=== PATIENT | male | born 1955 ===

== ENCOUNTER 2019-06-05 12:15 | Inpatient (IN) | payer MEDICARE ==
--- NOTE | 2019-06-06 01:54 | Psychiatric Evaluation ---
DATE OF SERVICE: 06/05/2019 INITIAL EVALUATION AND MENTAL STATUS EXAM PATIENT'S AGE: 63. SEX: Male. PHYSICIAN: Dr. Irene. CHIEF COMPLAINT: Confusion and depression. HISTORY OF PRESENT ILLNESS: The patient is a 63-year-old homeless male, who was transferred from [facility] Room because of increased depression and because of suicidal ideations. The patient is homeless and has not been able to have any safe plan for self-care. The patient also has been having poor appetite and has been having lack of motivations. He also has not been able to provide any safe plan for self-care. PAST PSYCHIATRIC HISTORY: The patient is a poor historian, but seems to have history of depression. PAST MEDICAL HISTORY: The patient has a history of seizure disorder. SOCIAL HISTORY: The patient is homeless, poor historian, and unable to provide any information about the living situation. No known alcohol or drug use. ALLERGIES: No known allergies. MENTAL STATUS EXAMINATION: The patient seems to be older than stated age. Seems to be sedated and not answering most of the questions. Poor historian. The patient denies any hallucinations or delusions. Admits to suicidal ideations with no plans, but denies homicidal ideations. The patient is slightly sedated. He seems to be disoriented to date and time, but oriented to the situation. Impaired immediate and recent memories, but intact remote memory. Poor insight and poor judgment. ASSESSMENT: PRIMARY DIAGNOSIS: Depressive mood disorder, unspecified. MEDICAL DIAGNOSES: Seizure disorder. TREATMENT PLAN: Continue to monitor the patient's behavior and condition closely. Also, we will continue adjusting medications and followup. ESTIMATED LENGTH OF STAY: 5-7 days. PATIENT'S STRENGTHS AND WEAKNESSES: The patient's strength is not clear at this time. Weakness is his ineffective coping and poor judgment. AFTER DISCHARGE PLAN: The patient might need placement and outpatient treatment and followup. CRITERIA FOR DISCHARGE: The patient will not be depressed or suicidal and will stabilize psychotropic medications and will establish outpatient treatment plans. [facility]# [id number]
[2019-06-06] MEDS: Escitalopram Oxalate 5 mg Tab PO SCH (08:56)
[2019-06-06] MEDS ORDERED: METOPROLOL SUCCINATE 50 MG PO SCH (09:00)
--- NOTE | 2019-06-06 11:01 | Progress Notes ---
DATE: 06/06/2019 PSYCHIATRIC PROGRESS NOTE SUBJECTIVE: Chart was reviewed and the patient was interviewed. Also, discussed the patient's condition with the staff and I reviewed the records and the labs. The patient is still depressed and confused. Minimum interaction with others. The patient also still has difficulty expressing himself and his needs. He denies any intention to harm himself, but is still feeling hopeless. ASSESSMENT: The patient is still severely depressed. TREATMENT PLAN: We will continue monitoring his behavior closely. Also, we will add Lexapro in a dose of 5 mg at bedtime and continue to work on his ineffective coping. JOB# [id number]
[2019-06-06] MEDS ORDERED: CLO PO PRN (16:00)
[2019-06-07] MEDS: Escitalopram Oxalate 5 mg Tab PO SCH (08:38)
--- NOTE | 2019-06-08 10:13 | History & Physical ---
ADMIT DATE: 06/05/2019 REASON FOR ADMISSION: Psychiatric disorder. HISTORY OF PRESENT ILLNESS: This is a 63-year-old male with underlying history of hypertension, diabetes, mental disorder, admitted to Geropsych Unit for underlying psychiatric illness by Dr. Irene. Dr. Irene requested a medical H and P on this patient. Denies any medical concerns. PAST MEDICAL HISTORY: Hypertension, diabetes. PAST SURGICAL HISTORY: No significant past surgery. FAMILY HISTORY: Denies any family history. SOCIAL HISTORY: Lives at home. No tobacco, alcohol. Denies any drug use. CURRENT MEDICATIONS: Per medication reconciliation. ALLERGIES: No known drug allergies. REVIEW OF SYSTEMS: Denies any fever, no chills, no nausea or vomiting, no abdominal pain, no chest pain or trouble breathing. No hematemesis, no melena. PHYSICAL EXAMINATION: VITAL SIGNS: Temperature 97.8, pulse 60, respirations 20, blood pressure 144/79, O2 98% on room air. HEENT: Unremarkable. HEART: S1, S2 normal. LUNGS: Clear to auscultation. ABDOMEN: Soft, nontender. ____. NEUROLOGIC: ____. ASSESSMENT: 1. Diabetes. 2. Hypertension. 3. Mental disorder. ____. PLAN: Continue current diabetic and blood pressure medications. Smoking cessation advised. Psych management per psychiatrist. The patient is medically stable to participate in activities of Geropsych unit. JOB# [id number]
--- NOTE | 2019-06-08 10:13 | Progress Notes ---
DATE: 06/07/2019 SUBJECTIVE: Chart was reviewed and the patient interviewed. Also discussed the patient's condition with the staff and reviewed records and labs. The patient is still withdrawn and quiet. The patient also is still anxious and he is still repeating issues over and over and still has disorganized thoughts. The patient also is __ and at times mumbles to himself. He is still severely depressed. Otherwise, the patient started on Lexapro with no side effects. ASSESSMENT: The patient is still depressed and needs close monitoring. TREATMENT PLAN: We will continue to monitor his behavior and his condition closely. Also, continue to work on his ineffective coping. Also, the patient will need placement and will continue to work on placement issue. [facility]# [id number]
--- NOTE | 2019-06-08 10:13 | Progress Notes ---
DATE: 06/08/2019 PSYCHIATRIC PROGRESS NOTE SUBJECTIVE: Chart reviewed and the patient interviewed. Also discussed the patient's condition with the staff and reviewed records and labs. The patient is still in a depressed mood. The patient also is still isolative and is withdrawn. He is interacting minimally with peers and with others. The patient denies any intention to harm himself or others. He also is still slightly paranoid, but no major behavioral problems. ASSESSMENT: The patient is still depressed and still considered to be gravely disabled and needs placement. TREATMENT PLAN: Continue to monitor behavior and condition closely. Also, we will increase Lexapro to 10 mg every day. Also, continue to work on his ineffective coping and his depression. JOB# [id number]
--- NOTE | 2019-06-09 08:16 | Progress Notes ---
DATE: 06/09/2019 Chart reviewed and the patient interviewed. Also discussed the patient's condition with the staff and reviewed records and labs. The patient is still depressed and withdrawn. The patient also seems to be forgetful at times. He also has not been interacting much with peers or with others. Also, he is still unable to provide any safe plan for self-care, but at the same time is cooperative in regard to placement and he is not opposing to that. Blood workup showed hemoglobin A1c of 9.7 and triglycerides of 498. Apparently, the patient was not taking his medications for diabetes or hyperlipidemia. Dr. Alexander was notified. At the same time, we will continue monitoring his labs and we will continue to follow up. JOB# [id number]
--- NOTE | 2019-06-10 18:12 | Psych Progress Note ---
Psych Progress Note - Intro Date of Progress Note: 06/10/19 - Assessment Assessment: The patient was interviewed, the case was discussed with staff, the chart and records were reviewed. Per the staff the patient has been withdrawn in bed all day depressed and not socializing with others isolating. The patient was visited bedside and appears to be with a depressed affect. He is poorly cooperative with the interview. He is irritable and not interested in talking with this provider. Attempted to engage the patient but interview to be terminated due to to his poor cooperation. Upon chart review the patient is admitted for depression with suicidal thoughts however the patient is unwilling to discuss this today. - Vitals, I&O Vitals: Vital Signs - 24 hr 06/09/19 06/10/19 06/10/19 19:54 06:04 08:00 Temp 98 F 97.4 F HR 73 70 RR 20 19 18 BP 141/76 158/80 O2 Sat % 97 97 06/10/19 06/10/19 09:22 09:23 Temp HR 70 70 RR BP 158/80 158/80 O2 Sat % - Plan Plan: Continue current treatment plan and monitor for behaviors. - Review of Relevant Data Review of Relevant Data: I have reviewed the following items and time louisa (where applicable) has been applied. - Medications Current Medications: Current Medications Amlodipine Besylate (Norvasc) 10 mg PO DAILY [facility] Stop: 08/05/19 08:59 Last Admin: 06/10/19 09:23 Dose: 10 mg Escitalopram Oxalate (Lexapro) 10 mg PO DAILY [facility]; Protocol Stop: 08/07/19 08:59 Last Admin: 06/10/19 09:23 Dose: 10 mg Lorazepam (Ativan) 0.5 mg PO Q4HR PRN; Protocol PRN Reason: Anxiety Stop: 07/05/19 20:20 Metformin HCl (Glucophage) 1,000 mg PO BIDWM [facility] Stop: 08/08/19 07:59 Last Admin: 06/10/19 17:29 Dose: 1,000 mg Metoprolol Succinate (Toprol Xl) 50 mg PO DAILY [facility] Stop: 08/05/19 08:59 Last Admin: 06/10/19 09:22 Dose: 50 mg Ondansetron HCl (Zofran Odt) 4 mg PO Q8H PRN PRN Reason: Nausea / Vomiting Stop: 08/04/19 20:37 Zolpidem Tartrate (Ambien) 5 mg PO HS PRN PRN Reason: Insomnia Stop: 08/04/19 20:20
--- NOTE | 2019-06-11 07:45 | Progress Notes ---
DATE: 06/11/2019 SUBJECTIVE: The patient in the hospital, depressed, mostly withdrawn, not interacting much with peers, refusing to speak with me this morning, difficult to fully assess. Medications were reviewed. The patient is currently in the hospital, increased depression and suicidal ideations. Ongoing safety concerns given the extent and severity of his current mood state, social withdrawal. Medications were reviewed. JOB# [id number]
[2019-06-12 16:07] VITALS: BP 163/80
--- NOTE | 2019-06-13 09:05 | Progress Notes ---
DATE: SUBJECTIVE: Chart was reviewed and the patient interviewed. Also discussed the patient's condition with the staff and reviewed records and labs. The patient is still anxious and is still in a depressed mood. The patient also is still in irritable mood and is still agitated. The patient also is still feeling hopeless and wants to be left alone. Otherwise, the patient is interacting minimally with others. ASSESSMENT: The patient is still depressed and anxious. TREATMENT PLAN: We will continue monitoring behavior and his condition closely. Also, continue adjusting psychotropic medications and work on behavioral modification. JOB# [id number]
--- NOTE | 2019-06-13 16:58 | Progress Notes ---
DATE: 06/13/2019 SUBJECTIVE: Chart was reviewed and the patient interviewed. Also discussed the patient's condition with the staff and reviewed records and labs. The patient is still depressed mood and is still anxious. The patient is also interacting minimally with others. The patient also is still feeling hopeless and helpless and seems to be slightly confused. Otherwise, the patient continued to comply with taking Lexapro 10 mg every day with no side effects. The patient also is complaining of generalized weakness and seems that from being in the streets and being homeless for a while. He has started to have some medical issues at this time. ASSESSMENT: The patient is still depressed and slightly confused. TREATMENT PLAN: Continue Lexapro 10 mg every day. Also, Camila Abarca interviewed the patient for possible placement there for more physical rehabilitation. At the same time, we will continue to work on his ineffective coping and his medical issues and continue to follow up. JOB# [id number]
--- NOTE | 2019-06-14 07:36 | Progress Notes ---
DATE: 06/14/2019 SUBJECTIVE: Chart was reviewed and the patient interviewed. Also discussed the patient's condition with the staff and reviewed records and labs. The patient is still in a depressed mood and is still isolative and withdrawn. The patient also is still guarded and interacting minimally with others. The patient also is still slightly suspicious and paranoid. Also, complaining of lack of energy and lack of motivations and the patient is also feeling "no energy." He is complaining of generalized weakness. The patient's gait is steady and vital signs are stable and fair appetite. ASSESSMENT: The patient is still depressed and is still high risk of suicide. TREATMENT PLAN: Continue to monitor his behavior and his condition closely. Also, we will increase Lexapro to 10 mg every day and we will continue to follow up closely. [facility]# [id number]
--- NOTE | 2019-06-14 22:59 | Progress Notes ---
DATE: 06/14/2019 PSYCHIATRIC PROGRESS NOTE SUBJECTIVE: Chart reviewed and the patient interviewed. Also discussed the patient's condition with the staff and reviewed records and labs. The patient is still anxious and still in a depressed mood. The patient also still isolates himself and stays in his room most of the time. The patient also is still unable to provide any safe plan for self-care. He is still feeling hopeless and feeling weak with lack of energy and lack of motivations. Otherwise, the patient is compliant with taking medications with no side effects of medications. Also, the patient denies any thoughts of suicide. ASSESSMENT: The patient is still depressed, but not suicidal. TREATMENT PLAN: We will continue monitoring behavior and condition closely. Also, we will increase Lexapro to 10 mg at bedtime and we will continue to follow up. Also, working on placement issue and discharge plans when stable. JOB# [id number]
--- NOTE | 2019-06-15 08:52 | Progress Notes ---
DATE: 06/15/2019 SUBJECTIVE: Chart was reviewed and the patient interviewed. Also discussed the patient's condition with the staff and reviewed records and labs. The patient is still anxious and is still in a depressed mood. The patient also is withdrawn and guarded and interacting minimally with others. The patient also is interacting minimally and wants to be left alone. Seems to be feeling hopeless and helpless. Otherwise, no side effects of medications. ASSESSMENT: The patient is still anxious and is still in irritable mood. TREATMENT PLAN: We will continue to monitor behavior and condition closely. Also, we will continue Lexapro in a dose of 10 mg every day and continue to adjust the dose. Also, we will work on irritability and anger and we will continue to follow up. JOB# [id number]
--- NOTE | 2019-06-17 02:05 | Progress Notes ---
DATE: 06/16/2019 SUBJECTIVE: Chart was reviewed and the patient interviewed. Also discussed the patient's condition with the staff and reviewed records and labs. The patient is still in a depressed mood and is still isolative and withdrawn. The patient also is still guarded and is interacting minimally with others. The patient also is still showing unsteady gait and generalized weakness at times. Otherwise, the patient is compliant with taking Lexapro with no side effects. ASSESSMENT: The patient is still depressed and also still needs close monitoring. TREATMENT PLAN: Continue monitoring behavior and condition closely. Also, continue adjusting psychotropic medications and work on behavioral modification. JOB# [id number]
--- NOTE | 2019-06-17 19:47 | Progress Notes ---
DATE: 06/17/2019 IDENTIFYING DATA: A 63-year-old male brought in here from [facility] for increased depression and suicidal ideations. Nursing staff reported the patient has been isolating in his room, disengaged. Today on [id number] evaluation, the patient is eating his food. The patient is very isolative, withdrawn, shakes his head, shrugs his shoulder for most of the questions with flat affect. ASSESSMENT AND PLAN: Major depressive disorder, severe, who continues to find still distressed, overwhelmed with the current medication; depression. We will continue with Lexapro 10 mg as he continues to reach steady state to target the patient's depressive symptoms. JOB# [id number]
--- NOTE | 2019-06-18 22:12 | Progress Notes ---
DATE: 06/18/2019 SUBJECTIVE: Today on [id number] evaluation, the patient with flat affect, minimally participating, admits to sad mood. MENTAL STATUS EXAMINATION: Isolative, flat affect, distress. ASSESSMENT AND PLAN: Major depressive disorder. We will continue with the recent adjustments of the Lexapro to continue to target the patient's ongoing severe depressive state. JOB# [id number]
--- NOTE | 2019-06-19 19:47 | Discharge Summary ---
DATE OF DISCHARGE: 06/19/2019 AGE: 63. SEX: Male. PHYSICIAN: Dr. Irene. FINAL DIAGNOSIS AND PRIMARY DIAGNOSIS: Major depression, severe, single episode, without psychotic features. MEDICAL DIAGNOSES: Generalized weakness. Seizure disorder. REASON FOR HOSPITALIZATION: The patient was admitted to the hospital because of increased depression and suicidal ideations and inability to care for herself for being homeless. HOSPITAL COURSE: The patient continued to be severely depressed. The patient also continued to feel hopeless and helpless, also was interacting minimally with others upon admission and wanted to be left alone. The patient started on Lexapro 5 mg every day and that was increased to 10 mg every day. Gradually, the patient's affect was brighter. The patient was less depressed and less irritable. The patient also was interacting minimally with others. He started to get out more and participate more in groups. The patient also was not suicidal or homicidal. PHYSICAL EXAMINATION: The patient basically showed generalized weakness as well as seizure disorder. Blood workup was basically within normal. AFTER DISCHARGE PLANS: The patient was accepted to [facility] to continue his rehabilitation and physical therapy since the patient has generalized weakness. Outpatient treatment and followup will continue there. At the time of discharge, the patient was not suicidal or homicidal. [facility]# [id number]
--- NOTE | 2019-06-19 23:41 | Progress Notes ---
DATE: 06/19/2019 SUBJECTIVE: Chart was reviewed and the patient interviewed. Also discussed the patient's condition with the staff and reviewed records and labs. The patient's affect is brighter. The patient is less anxious and less depressed. Also, interacting more with peers and with others. The patient also denies any intention to harm himself or others and he denies any thoughts of suicide or homicide. The patient also has been compliant with taking his medications with no side effects of medications. ASSESSMENT: The patient is not suicidal or homicidal. TREATMENT PLAN: Planning to discharge the patient to [facility] with plans for outpatient treatment there. The patient also will be a candidate later on for partial program. [facility]# [id number]
== END 2019-06-19 15:20 | DRG 885 ==
LOC: GERO 13:59
PROVIDERS: ADMIT Psychiatry & Neurology Psychiatry; ATTEND Psychiatry & Neurology Psychiatry
DX: F32.2 Major depressive disorder, single episode, severe without psychotic features (principal); G40.909 Epilepsy, unspecified, not intractable, without status epilepticus; E11.9 Type 2 diabetes mellitus without complications; I10 Essential (primary) hypertension; Z59.0 Homelessness; Z79.899 Other long term (current) drug therapy; Z79.84 Long term (current) use of oral hypoglycemic drugs
CPT/HCPCS: 82948-90; 83036-90; G0410; Z7610